=== PATIENT | male | born 1960 | race Caucasian/White ===

== ENCOUNTER → 2023-12-12 12:44 | Outpatient (REF) | payer BC, SELFPAY | LOC: RAD 12:44 | PROVIDERS: ATTENDING PHYSICIAN Nurse Practitioner Family; FAMILY PHYSICIAN Internal Medicine | DX: R10.32 Left lower quadrant pain (principal); M25.552 Pain in left hip | CPT/HCPCS: 73523 ==

== ENCOUNTER → 2023-12-13 07:13 | Outpatient (REF) | payer BC, SELFPAY ==
[2023-12-13 09:40] LABS: % Basophils 0.2 % (0-2); % Immature Granulocytes 0.4 % (0-0.5); % Lymphocytes 5.9 % (20.5-51.1); % Monocytes 3.6 % (1.7-9.3); % Neutrophils 89.9 % (42.2-75.2); Absolute Immature Granulocytes 0.1 10^3/uL (0-0.05); Absolute Lymphocytes 0.7 10^3/uL (1.2-3.4); Absolute Monocytes 0.4 10^3/uL (0.1-0.6); Absolute Neutrophils 11.1 10^3/uL (1.4-6.5); Hematocrit 43.5 % (39.0-52.0); Hemoglobin 15.6 g/dL (13.0-18.0); Mean Corp Hgb Conc. 35.9 g/dL (33.0-37.0); Mean Corpuscular Hgb 32.8 pg (27.0-31.0); Mean Corpuscular Volume 91.4 fL (80.0-94.0); Mean Platelet Volume 10.2 fL (7.4-10.4); Nucleated Red Blood Cells % 0 % (-); Platelet Count 218 10^3/uL (130-400); Red Blood Cell Count 4.76 10^6/uL (4.70-6.10); Red Cell Dist. Width 12.4 % (11.5-14.5); Urine Albumin Negative (Neg - Trace); Urine Bilirubin Negative (Negative); Urine Character Clear (Clear); Urine Glucose Negative (Negative); Urine Ketone Negative (Negative); Urine Leukocyte 1+ (Negative); Urine Nitrite Negative (Negative); Urine Occult Blood 1+ (Negative); Urine Urobilinogen Negative (Neg - 1+); White Blood Cell Count 12.3 10^3/uL (4.8-10.8)
[2023-12-13 09:41] LABS: Urine Color Yellow
[2023-12-13 09:57] LABS: Urine Bacteria Few (Negative); Urine Red Blood Cell 0-2 /HPF (0-2)
[2023-12-13 10:04] LABS: ALT (SGPT) 34 U/L (0-50); AST (SGOT) 27 U/L (17-59); Alkaline Phosphatase 71 U/L (38-126); Blood Urea Nitrogen 22 mg/dl (9-20); Calcium 10.5 mg/dl (8.4-10.2); Carbon Dioxide 20 mmol/L (22-30); Chloride 104 mmol/L (98-107); Glucose 136 mg/dl (70-99); HDL Cholesterol 80 mg/dl; LDL Cholesterol, Calculated 68 mg/dl; Potassium 4.2 mmol/L (3.5-5.1); Sodium 135 mmol/L (135-145); Total Bilirubin 1.6 mg/dl (0.2-1.3); Total Cholesterol 156 mg/dl (50-199); Total Protein 8.5 g/dl (6.3-8.2); Triglyceride 43 mg/dl (10-149); Very Low Density Lipoprotein 8 mg/dl (0-30); eGFR > 60.00
[2023-12-13 10:13] LABS: Vitamin D, 25-OH*** 47.7 ng/mL (30-80)
[2023-12-13 10:26] LABS: PSA, Total - Screen 0.51 ng/ml (0.0-4.0); TSH Reflex To Free T4 0.98 uIU/ml (0.47-4.68)
[2023-12-13 11:58] LABS: Glycohemoglobin (HgbA1c) 5.4 % (4.0-5.6)
== END ==
LOC: HWLAB 07:13
PROVIDERS: ATTENDING PHYSICIAN Nurse Practitioner Family
DX: I48.21 Permanent atrial fibrillation (principal); I10 Essential (primary) hypertension; E78.2 Mixed hyperlipidemia; R93.1 Abnormal findings on diagnostic imaging of heart and coronary circulation; R29.818 Other symptoms and signs involving the nervous system; D68.69 Other thrombophilia; I25.10 Atherosclerotic heart disease of native coronary artery without angina pectoris; I77.810 Thoracic aortic ectasia; I49.8 Other specified cardiac arrhythmias; R73.01 Impaired fasting glucose; N52.9 Male erectile dysfunction, unspecified; M21.371 Foot drop, right foot; Z12.5 Encounter for screening for malignant neoplasm of prostate; E55.9 Vitamin D deficiency, unspecified
CPT/HCPCS: 36415; 80053; 80061; 81003; 81015; 82306; 83036; 84443; 85025; G0103

== ENCOUNTER → 2023-12-20 10:07 | Outpatient (REF) | payer BC, SELFPAY ==
[2023-12-20 10:52] LABS: Ionized Calcium 1.14 mMOL/L (1.15-1.33)
[2023-12-20 11:11] LABS: % Basophils 0.5 % (0-2); % Eosinophils 1.2 % (0-6); % Immature Granulocytes 2.1 % (0-0.5); % Lymphocytes 19.2 % (20.5-51.1); % Monocytes 9.8 % (1.7-9.3); % Neutrophils 67.2 % (42.2-75.2); Absolute Basophils 0.1 10^3/uL (0-0.2); Absolute Eosinophils 0.1 10^3/uL (0-0.7); Absolute Immature Granulocytes 0.2 10^3/uL (0-0.05); Absolute Lymphocytes 1.9 10^3/uL (1.2-3.4); Absolute Neutrophils 6.7 10^3/uL (1.4-6.5); Hematocrit 43.7 % (39.0-52.0); Hemoglobin 15.5 g/dL (13.0-18.0); Mean Corp Hgb Conc. 35.5 g/dL (33.0-37.0); Mean Corpuscular Hgb 32.9 pg (27.0-31.0); Mean Corpuscular Volume 92.8 fL (80.0-94.0); Mean Platelet Volume 10.1 fL (7.4-10.4); Nucleated Red Blood Cells % 0 % (-); Platelet Count 212 10^3/uL (130-400); Red Blood Cell Count 4.71 10^6/uL (4.70-6.10); Red Cell Dist. Width 12.6 % (11.5-14.5)
[2023-12-20 11:22] LABS: ALT (SGPT) 59 U/L (0-50); AST (SGOT) 31 U/L (17-59); Albumin 4.6 g/dl (3.5-5.0); Alkaline Phosphatase 69 U/L (38-126); Blood Urea Nitrogen 19 mg/dl (9-20); Calcium 9.7 mg/dl (8.4-10.2); Carbon Dioxide 25 mmol/L (22-30); Chloride 101 mmol/L (98-107); Glucose 103 mg/dl (70-99); Potassium 4.6 mmol/L (3.5-5.1); Sodium 132 mmol/L (135-145); Total Bilirubin 1.6 mg/dl (0.2-1.3); Total Protein 7.6 g/dl (6.3-8.2); eGFR > 60.00
[2023-12-21 16:19] LABS: Intact PTH 59.8 pg/ml (13.6-85.8)
== END ==
LOC: REG 10:07
PROVIDERS: ATTENDING PHYSICIAN Nurse Practitioner Family
DX: E83.52 Hypercalcemia (principal); D72.829 Elevated white blood cell count, unspecified
CPT/HCPCS: 36415; 80053; 82330; 83970; 85025

== ENCOUNTER → 2024-09-24 16:37 | Outpatient (REF) | payer BC, SELFPAY | LOC: RAD 16:37 | PROVIDERS: ATTENDING PHYSICIAN Family Medicine | DX: M25.561 Pain in right knee (principal) | CPT/HCPCS: 73564 ==

== ENCOUNTER 2024-12-12 13:53 | Emergency (ER) | payer BC, SELFPAY ==
[2024-12-12 13:55] VITALS: BP 133/96
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
== END 2024-12-12 15:14 | disposition home or self-care (01) ==
LOC: EMR 13:53
PROVIDERS: EMERGENCY PHYSICIAN Student in an Organized Health Care Education/Training Program; FAMILY PHYSICIAN Internal Medicine
DX: S09.90XA Unspecified injury of head, initial encounter (principal); W21.04XA Struck by golf ball, initial encounter
CPT/HCPCS: 99284; 70450

== ENCOUNTER → 2025-07-27 07:54 | Outpatient (REF) | payer BC, SELFPAY | LOC: RAD 07:54 | DX: Z96.641 Presence of right artificial hip joint (principal); Z96.642 Presence of left artificial hip joint | CPT/HCPCS: 73502 ==